=== PATIENT | male | born 1990 | race Caucasian/White ===

== ENCOUNTER 2020-05-03 08:54 | Emergency (ER) | payer SELFPAY ==
[~2020-05-03] VITALS: Ht 177.8 cm; Wt 62.3 kg
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
[2020-05-03] MEDS ORDERED: TDAP [DIPH/PERTUSSIS/TET] 0.5 ML VIAL IM ONE ×2 (09:11→09:30)
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
--- NOTE | 2020-05-03 09:58 | NUR ---
PT OUT FOR CT OF THE HEAD AND NECK
--- NOTE | 2020-05-03 12:58 | NUR ---
WOUND CLEANING DONE BY CALL CENTER OPERATOR.
[2020-05-03 13:52] VITALS: BP 111/70
--- NOTE | 2020-05-03 13:52 | NUR ---
Patient discharged to home in stable condition. Written and verbal after care instructions given. Patient verbalizes understanding of instruction.
== END 2020-05-03 13:53 | disposition home or self-care (01) ==
LOC: ER 08:58
DX: S02.2XXA Fracture of nasal bones, initial encounter for closed fracture (principal); S00.531A Contusion of lip, initial encounter; R51.9 Headache, unspecified; Y04.8XXA Assault by other bodily force, initial encounter; Y93.89 Activity, other specified; Y92.89 Other specified places as the place of occurrence of the external cause; Y99.8 Other external cause status
CPT/HCPCS: 36415; 70450; 70486; 71045; 72125; 80320; 90471; 90715; 99285; A6403; G0480